=== PATIENT | female | born 1985 | race Caucasian/White ===

== ENCOUNTER 2016-05-04 10:04 | Emergency (ER) | payer MEDICAID ==
[~2016-05-04] VITALS: Ht 152.4 cm; Wt 45.0 kg
[2016-05-04 10:09] VITALS: Ht 152.4 cm; Wt 45.0 kg
[2016-05-04] MEDS ORDERED: BEN25 PO (10:27)
[2016-05-04] MEDS ORDERED: FLUC150T17 PO (10:27)
[2016-05-04] MEDS ORDERED: KENC1 TOP (10:33)
--- NOTE | 2016-05-04 10:59 | ERD ---
ER Documentation Chief Complaint Date/Time DATE: 05/04/16 TIME: 10:51 Chief Complaint nhi foot rash and itching HPI Patient is a 31-year-old female who presents to the ED with multiple complaints. Patient states that she had white cottage like discharge for the last couple days. She states that she took myfe-bvv-cwndzto miconazole on Friday. She states that she developed a pruritic, rash on her bilateral feet yesterday. She denies pain, lesions or spreading of rash. She denies fever or chills. She denies chest pain, cough, shortness of breath or difficulty breathing. She denies abdominal pain, nausea, vomiting, diarrhea or constipation. She states that her last normal menstrual period was 03/26/16. She states that she possibly started her period today. She states that she had unprotected sex last week. She denies other abnormal vaginal discharge. She denies pelvic pain. Denies dysuria, urgency or frequency or back pain. She denies leg pain or swelling. Denies recent travel, bites, or change in foods. ROS All systems reviewed and are negative except as per history of present illness. Medications Home Meds Active Scripts Nitrofurantoin Monohyd Macrocr* (Macrobid*) 100 Mg Capsr, 100 MG PO BID for 5 Days, CAP Prov:TIANTARICK ARREOLA PA-C 05/04/16 Triamcinolone Acetonide (Triamcinolone Acetonide) 0.1% - 15 Gm Cream.gm., 1 APPLIC TOP BID, #1 TUB Prov:TIANTARIANGENAROAZ PA-C 05/04/16 Diphenhydramine Hcl* (Benadryl*) 25 Mg Cap, 25 MG PO Q6, #30 CAP Prov:SHOOSHTARIAN,GENAROAZ PA-C 05/04/16 Fluconazole* (Diflucan*) 150 Mg Tablet, 150 MG PO ONCE, #1 TAB Prov:TIANTARICK ARREOLA PA-C 05/04/16 Allergies Allergies: Coded Allergies: No Known Allergy (Unverified , 05/04/16) PMhx/Soc Medical and Surgical Hx: pt denies Medical Hx, pt denies Surgical Hx History of Surgery: No Anesthesia Reaction: No Hx Neurological Disorder: No Hx Respiratory Disorders: No Hx Cardiac Disorders: No Hx Psychiatric Problems: No Hx Miscellaneous Medical Probl: No Hx Alcohol Use: No Hx Substance Use: No Hx Tobacco Use: No Smoking Status: Never smoker FmHx Family History: No coronary disease, No diabetes, No other Physical Exam Vitals Vital Signs Date Time Temp Pulse Resp B/P Pulse Ox O2 Delivery O2 Flow Rate FiO2 05/04/16 10:09 98.1 79 18 120/61 99 Physical Exam GENERAL: Well-developed, well-nourished female. Appears in no acute distress. LUNG: Clear to auscultation bilaterally. No rhonchi, wheezing, rales or coarse breath sounds. HEART: Regular rate and rhythm. No murmurs, rubs or gallops. ABDOMEN: No scars, ecchymosis or rashes noted. Soft, nontender, and nondistended. Positive bowel sounds in all four quadrants. No rebound tenderness , no guarding. (-) McBurneys point tenderness. No CVA tenderness. : No adnexal tenderness, no CMT. slight bleeding in vaginal vault with no clots. mild white cottage cheese discharge. Extremities: Equal pulses bilaterally. No peripheral clubbing, cyanosis or edema. No unilateral leg swelling. NEUROLOGIC: Alert and oriented. Moving all four extremities. 5/5 strength in all extremities. Normal speech. Steady gait. SKIN: Normal color. Warm and dry. mildly erythematous rash. no streaking. no induration, flucutuance. no warmth. Capillary refill < 2 seconds Results 24 hrs Laboratory Tests Test 05/04/16 11:09 Bedside Urine pH (LAB) 7.0 Bedside Urine Protein (LAB) Negative Bedside Urine Glucose (UA) Negative Bedside Urine Ketones (LAB) Negative Bedside Urine Blood 3+ Bedside Urine Nitrite (LAB) Negative Bedside Urine Leukocyte Esterase (L 1+ Procedures/MDM ER COURSE: I kept the patient and/or family informed of laboratory and diagnostic imaging results throughout the emergency room course. PROCEDURES pelvic exam LABORATORY STUDIES Urine dip shows 1+ leukocytes, no nitrites, 3+ hematuria. test is negative MEDICAL DECISION MAKING: This is a 31-year-old female who presents with rash to her bilateral feet and abnormal vaginal discharge and check. Vital signs were reviewed. Patient is afebrile. Patient is not hypoxic. Patient is not toxic or ill- appearing. Her rash is likely of unknown etiology. Low suspicion for necrotizing fasciitis, SJS, toxic epidermal necrolysis, Kawasaki, erythema multiforme, gangrene, scarlet fever, meningococcemia, sepsis, anaphylaxis, sepsis, deep space infection, or foreign body. Her pelvic exam was unremarkable. I will also be treating her for candidiasis as she had mild cottage cheeselike discharge. Patient does have a UTI. Low suspicion for ovarian torsion, PID, tuboovarian abscess, ectopic , bowel obstruction , pyelonephritis, appendicitis, cervicitis, septic , molar , HELLP syndrome, preeclampsia, eclampsia, placenta previa, placenta abruptia. Her urine was also sent for gonorrhea chlamydia. I instructed patient that she will be called for results. DISCHARGE: At this time, patient is stable for discharge and outpatient management with no new complaints during the ER course. Patient was sent home with Macrobid, triamcinolone cream, Benadryl and Diflucan. 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 Instructed patient that if she is positive for gonorrhea chlamydia, her partner or partners must be treated as well. Patient will be discharged home with instructions to recheck for new or worsening symptoms such as fever, nausea, weakness, LOC and to follow up with primary care in the next 1-2 days. Patient was advised to return to the ER for any new or worsening symptoms. Plan was discussed and patient and/or family understands and agrees. Home instructions were given. Departure Diagnosis: Primary Impression: Rash Additional Impression: UTI (urinary tract infection) Urinary tract infection type: site unspecified Hematuria presence: with hematuria Qualified Code: N39.0 - Urinary tract infection with hematuria, site unspecified Condition: Stable Patient Instructions: Vaginal Infection: Yeast (Candidiasis) Referrals: [facility] [place] [address] [facility] [address] [place] [address] OFFICE FAX SE[facility]AL [address] [place] [address] [address] ORDOÑEZ MONTEVIDEO [address] [place] [address] [address] [facility] [address] [facility], [address], [place] [address] SHONDA NAJERA [address] [facility] [facility], [place] [address] [address] [address] [place] [address] [address] [facility] [id number] - [place] [address]ACK [address] [facility] [address] [address] LEIVA, DESIRAE [address] [facility] [address], [facility] [address] [address] [address] [place], [place] [id number] [facility] Hours: 8:00 am - 5:00 pm [facility] () Usted se foley hecho un examen mdico de control que le indica que no est en yanci condicin que requiera tratamiento urgente en el Departamento de Emergencia. Un estudio ms profundo y el tratamiento de cunningham condicin pueden esperar sin ningn riesgo hasta que usted sea atendida/o en el consultorio de cunningham mdico o yanci cl krystin. Es responsabilidad suya arreglar yanci jeison para el seguimiento del viv. MANEJO DE CONDICIONES NO URGENTES EN EL FUTURO 1) Si usted tiene un mdico de atencin primaria: Usted debera llamar a cunningham mdico de atencin primaria antes de venir al departamento de emergencia. Despus de las horas de consultorio, cunningham doctor o cunningham asociado/a est disponible por telfono. El mdico o enfermero de ish en el servicio telefnico puede asesorarle por joseph medio para atender el problema, o viv contrario se puede programar yanci jeison. 2) Si usted no tiene un mdico de atencin primaria: Llame al mdico o clnica de referencia que aparece abajo russel las horas de consultorio para hacer yanci jeison para que le vean. CLINICAS: [facility] [phone] [facility] [phone] [facility] [phone] [facility] [phone] [address] [facility] [phone] [address] [facility] [phone] [address] Additional Instructions: Llame al doctor MAANA y britt yanci JEISON PARA DENTRO DE 1-2 HASSAN.Dgale a la secretaria que nosotros le instruimos hacer esta jeison.Avise o llame si cunningham condicin se empeora antes de la jeison. Regresa aqui si peor o no mejor. RICK MENDEZ PA-C May 04, 2016 10:59
[2016-05-04 11:09] LABS: URINE BLOOD (Dip) POC 3+ (NEGATIVE)
[2016-05-04] MEDS ORDERED: NITR-58 PO (11:30)
[2016-05-04 11:54] VITALS: BP 123/60; PULSE 70; RESP 18; TEMP 98.1
== END 2016-05-04 11:55 | disposition home or self-care (01) ==
LOC: FTE 10:04
DX: R21 Rash and other nonspecific skin eruption (principal); N39.0 Urinary tract infection, site not specified
CPT/HCPCS: 81003; 87591; 99284

== ENCOUNTER 2016-07-22 22:01 | Emergency (ER) | payer MEDICAID, OTHER ==
[~2016-07-22] VITALS: Ht 162.6 cm; Wt 49.5 kg
[~2016-07-22 22:01] MED LIST: BEN25 PO; FLUC150T17 PO; KENC1 TOP; NITR-58 PO
[2016-07-22 22:12] VITALS: Ht 162.6 cm; Wt 49.5 kg
[2016-07-23] MEDS ORDERED: BEN25 PO (00:35)
[2016-07-23] MEDS ORDERED: HC1C30 TOP (00:36)
[2016-07-23] MEDS ORDERED: CEPH500C PO (00:36)
--- NOTE | 2016-07-23 00:43 | ERD ---
ER Documentation Chief Complaint Date/Time DATE: 07/23/16 TIME: 00:38 Chief Complaint bites on arms after being at beach yesterday HPI This is a 31-year-old female presents to the ER with multiple bug bites on her arms that have been there for the last few days. Patient states that the bites are itchy and are getting more red and swollen. She admits to a burning pain whenever she scratches them. Patient denies any fevers or chills. Denies any other rashes. She denies any lip, tongue, eyes swelling. She denies any difficulty in breathing. There are no sick contacts at home. Patient has not traveled anywhere. ROS 12 point review of systems was done, all negative except per HPI. Medications Home Meds Active Scripts Hydrocortisone* Topical (Hydrocortisone* Topical) 1%-28.35 Gm Cream..g., 1 APPLIC TOP Q6 Y for ITCHING, #1 TUB Prov:ESTEBAN BHAT 07/23/16 Cephalexin* (Cephalexin*) 500 Mg Capsule, 500 MG PO Q6 for 5 Days, #28 CAP Prov:ESTEBAN BHAT Navi 07/23/16 Diphenhydramine Hcl* (Benadryl*) 25 Mg Cap, 25 MG PO Q6, #30 CAP Prov:ESTEBAN BHAT Navi 07/23/16 Nitrofurantoin Monohyd Macrocr* (Macrobid*) 100 Mg Capsr, 100 MG PO BID for 5 Days, CAP Prov:RICK MENDEZ PA-C 05/04/16 Triamcinolone Acetonide (Triamcinolone Acetonide) 0.1% - 15 Gm Cream.gm., 1 APPLIC TOP BID, #1 TUB Prov:SHOMICHOACANORIANGENAROAZ PA-C 05/04/16 Diphenhydramine Hcl* (Benadryl*) 25 Mg Cap, 25 MG PO Q6, #30 CAP Prov:TIANTARIRICK SHELLEY PA-C 05/04/16 Fluconazole* (Diflucan*) 150 Mg Tablet, 150 MG PO ONCE, #1 TAB Prov:TIANTARICK ARREOLA PA-C 05/04/16 Allergies Allergies: Coded Allergies: No Known Allergy (Unverified , 05/04/16) PMhx/Soc History of Surgery: No Anesthesia Reaction: No Hx Neurological Disorder: No Hx Respiratory Disorders: No Hx Cardiac Disorders: No Hx Psychiatric Problems: No Hx Miscellaneous Medical Probl: No Hx Alcohol Use: No Hx Substance Use: No Hx Tobacco Use: No Physical Exam Vitals Vital Signs Date Time Temp Pulse Resp B/P Pulse Ox O2 Delivery O2 Flow Rate FiO2 07/22/16 22:12 98.5 66 16 103/67 100 Physical Exam GENERAL: The patient is well developed and appropriate for usual state of health , in no apparent distress. HEENT: Atraumatic. No lip swelling, tongue swelling, eyes swelling. CHEST: Clear to auscultation bilaterally. There are no rales, wheezes or rhonchi. HEART: Regular rate and rhythm. No murmurs, clicks, rubs or gallops. NEURO: Alert and oriented. SKIN: multiple insect bites on bilateral arms with some erythema and warmth to the touch. no areas of induration. Procedures/MDM This is a 31-year-old female presents to the ER with multiple bug bites on her arms. Area is erythematous and is warm to the touch. Patient likely has a slight allergic reaction to the insect bites versus possible beginning infection secondary to insect bite. Suspicion for severe allergic reaction is low. Patient has not angioedema, difficulty breathing or hypoxia. Patient is afebrile and well-appearing. She will be sent home with Keflex and with Benadryl. Needs follow-up with her primary care doctor within 1-2 days return to ER sooner if symptoms worsen. My medical team shared with the patient she understands and agrees with plan. Departure Diagnosis: Primary Impression: Insect bite Condition: Stable Patient Instructions: Insect Bites and Stings Additional Instructions: Llame al doctor GINA y britt yanci JEISON PARA DENTRO DE 1-2 HASSAN.Dgale a la secretaria que nosotros le instruimos hacer esta jeison.Avise o llame si cunningham condicin se empeora antes de la jeison. Regresa aqui si peor o no mejor. ESTEBAN BHAT Jul 23, 2016 00:43
== END 2016-07-23 02:21 | disposition home or self-care (01) ==
LOC: FTE 22:01
DX: S40.861A Insect bite (nonvenomous) of right upper arm, initial encounter (principal); S40.862A Insect bite (nonvenomous) of left upper arm, initial encounter; W57.XXXA Bitten or stung by nonvenomous insect and other nonvenomous arthropods, initial encounter; Y92.9 Unspecified place or not applicable
CPT/HCPCS: 99283